=== PATIENT | male | born 1935 | race Caucasian/White ===

== ENCOUNTER 2021-10-08 09:00 | Outpatient (CLI) | payer OTHER ==
[~2021-10-08 09:00] MED LIST: ALLOPURINOL300 MG PO; COZAAR100 MG PO; DOXAZOSIN MESYLA4 MG PO; DUCUSATE PO; FOLIC ACID1 MG PO; GLUCOTROL10 MG PO; GRALISE600 MG PO; LASIX20 MG PO; SODIUM PO; ZOCOR20 MG PO; [UNRECOGNIZED DRUG - OTHER] IM
== END 2021-10-08 09:15 | disposition home or self-care (01) ==
LOC: PPH VACUNA 09:00
PROVIDERS: ATTEND Emergency Medicine Pediatric Emergency Medicine
DX: Z23 Encounter for immunization (principal)